=== PATIENT | female | born 1950 | race Caucasian/White ===

== ENCOUNTER 2018-05-24 10:08 | Day surgery (SDC) | payer OTHER ==
[~2018-05-24] VITALS: Ht 162.6 cm; Wt 96.3 kg
[~2018-05-24 10:08] MED LIST: ATOR10 PO; Acidophilus La100 GM PO; BUDE6HFA INH; CALCIUM PO; CHOL10002 PO; DIGESTIVE ENZYMES PO; Elmiron100 MG PO; FOLI400 PO; FOLIC ACID PO; GABA100 PO; GABA300 PO; HYDCHL12.5 PO; HYDCHL25 PO; LIDOCAINE 1%; LISI20 PO; LISINOPRIL PO; LOVENOX SQ; META800 PO; PRAV20 PO; PROBIOTICS PO; SELENIUM 200 MCG PO; TRAM50 PO; TUMERIC PO; TURMERIC500 MG PO; Vitamin D PO; WARFARIN PO; XARELTO20 MG PO; ZINC220 PO; Zestril PO; [UNRECOGNIZED DRUG - CODE] PO; [UNRECOGNIZED DRUG - OTHER] PO; [UNRECOGNIZED DRUG - OTHER] PO; [UNRECOGNIZED DRUG - OTHER] PO
== END 2018-05-24 15:02 | disposition home or self-care (01) ==
LOC: ORSCSDS 10:08
PROVIDERS: Orthopaedic Surgery
PROC: 01N50ZZ Release Median Nerve, Open Approach (ICD-10-PCS; principal; 2018-05-24 11:30)
DX: G56.01 Carpal tunnel syndrome, right upper limb (principal); I10 Essential (primary) hypertension; E66.01 Morbid (severe) obesity due to excess calories; Z68.36 Body mass index [BMI] 36.0-36.9, adult; Z79.899 Other long term (current) drug therapy
CPT/HCPCS: J0690; J2250; J3010; J7120

== ENCOUNTER → 2018-07-14 | Outpatient (CLI) | payer OTHER ==
[2018-07-16 13:07] LABS: HPV 16 Negative (Negative); HPV 18 Negative (Negative); HPV OTHER HR TYPES Negative (Negative)
== END | disposition home or self-care (01) ==
LOC: LAB SHORT 17:27 → LAB 17:27
PROVIDERS: Obstetrics & Gynecology Gynecology
DX: Z91.89 Other specified personal risk factors, not elsewhere classified (principal)
CPT/HCPCS: 87624; G0123

== ENCOUNTER → 2019-02-21 | Outpatient (CLI) | payer MEDICARE | END | disposition home or self-care (01) | LOC: LAB EV 14:20 → LAB SHORT 14:20 | DX: N30.01 Acute cystitis with hematuria (principal) | CPT/HCPCS: 87077; 87086; 87186 ==

== ENCOUNTER 2019-06-16 14:48 | Emergency (ER) | payer MEDICARE ==
[~2019-06-16] VITALS: Ht 162.6 cm; Wt 92.5 kg
[2019-06-16] MEDS ORDERED: SPIRONOLACTONE50 MG PO (15:16)
[2019-06-16] MEDS ORDERED: METOPROLOL SUCC25 MG PO (15:16)
[2019-06-16] MEDS ORDERED: AMLODIPINE BESY10 MG PO (15:16)
[2019-06-16] MEDS ORDERED: XARELTO20 M1 PO (15:17)
[2019-06-16 15:26] LABS: BASOPHILS ABSOLUTE AUTO 0.04 K/mm3 (0.00-0.23); BASOPHILS PERCENT AUTO 0 % (0-2); EOSINOPHILS ABSOLUTE AUTO 0.01 K/mm3 (0.00-0.68); EOSINOPHILS PERCENT AUTO 0 % (0-6); Hematocrit 47.4 % (33.0-51.0); Hemoglobin 15.8 g/dL (11.5-16.0); IMMATURE GRAN ABSOLUTE AUTO 0.04 K/mm3 (0.00-0.10); IMMATURE GRAN PERCENT AUTO 0 % (0-1); LYMPHOCYTES ABSOLUTE AUTO 1.24 K/mm3 (0.84-5.20); LYMPHOCYTES PERCENT AUTO 9 % (21-46); MONOCYTES ABSOLUTE AUTO 0.36 K/mm3 (0.16-1.47); MONOCYTES PERCENT AUTO 3 % (4-13); Mean Corpuscular HGB 30.6 pg (26.0-34.0); Mean Corpuscular HGB Conc 33.3 g/dL (31.5-36.5); Mean Corpuscular Volume 92 fL (80-100); Mean Platelet Volume 10.9 fL (9.1-12.4); NEUTROPHILS ABSOLUTE AUTO 12.48 K/mm3 (1.96-9.15); NEUTROPHILS PERCENT AUTO 88 % (41-73); Platelet Count 250 K/mm3 (150-400); RDW Standard Deviation 44.3 fL (35.1-46.3); Red Blood Cell Count 5.17 M/mm3 (3.80-5.20); White Blood Cell Count 14.17 K/mm3 (4.00-11.30)
[2019-06-16 15:48] LABS: Albumin, Blood 4.3 g/dL (3.4-5.0); Albumin/Globulin Ratio 1.1 (0.8-1.8); Bilirubin, Total 0.5 mg/dL (0.1-1.0); Bun/Creatinine Ratio 19.6 (12.0-20.0); Calcium, Blood 9.8 mg/dL (8.5-10.1); Creatinine, Blood 1.02 mg/dL (0.40-1.00); Globulin, Blood 3.8 g/dL (2.2-4.0); Potassium, Blood 4.2 mmol/L (3.5-5.5); Total Protein, Blood 8.1 g/dL (6.4-8.2)
[2019-06-16 16:17] LABS: Source, Urine Clean Catch
[2019-06-16 16:19] LABS: Bilirubin, Urine Neg (Neg); Blood, Urine 5+ (Neg); Glucose Qualitative, Urine Neg (Neg); Ketones, Urine 2+ (Neg); Leukocyte Esterase, Urine 1+ (Neg); Nitrite, Urine Neg (Neg); Protein, Urine 2+ (Neg); Urobilinogen, Urine NORM (Normal)
[2019-06-16 16:20] LABS: Appearance, Urine Clear (Clear); Color, Urine Yellow (P-Yellow)
[2019-06-16 16:26] LABS: Bacteria Mod /hpf; Mucus Light (0-Heavy); Squamous Epithelial Cells Few /hpf (Few)
== END 2019-06-16 18:04 | disposition home or self-care (01) ==
LOC: ER 14:48
PROVIDERS: Emergency Medicine
DX: N13.6 Pyonephrosis (principal); I10 Essential (primary) hypertension; Z85.3 Personal history of malignant neoplasm of breast; Z87.891 Personal history of nicotine dependence; Z88.8 Allergy status to other drugs, medicaments and biological substances; Z88.5 Allergy status to narcotic agent; Z79.899 Other long term (current) drug therapy; Z79.01 Long term (current) use of anticoagulants
CPT/HCPCS: 36415; 74176; 80053; 81001; 83690; 85025; 87077; 87086; 87186; 96365; 96375; 99284-25; J0696; J1885; J2405

== ENCOUNTER → 2019-07-19 | Outpatient (CLI) | payer MEDICARE ==
[~2019-07-19] MED LIST changes: +AMLO10 PO; +AMLODIPINE BESY10 MG PO; +METOPROLOL SUCC25 MG PO; +PROAIR RESPICL90 MCG; +SPIRONOLACTONE50 MG PO; +XARELTO20 M1 PO
[2019-07-21 15:06] LABS: HPV 16 Negative (Negative); HPV 18 Negative (Negative); HPV OTHER HR TYPES Negative (Negative)
== END | disposition home or self-care (01) ==
LOC: LAB SHORT 12:25 → LAB 12:25
PROVIDERS: Obstetrics & Gynecology Gynecology
DX: N89.8 Other specified noninflammatory disorders of vagina (principal); Z91.89 Other specified personal risk factors, not elsewhere classified
CPT/HCPCS: 87070; 87077; 87186; 87205; 87624; G0123

== ENCOUNTER 2019-08-15 08:57 | Day surgery (SDC) | payer MEDICARE ==
[~2019-08-15] VITALS: Ht 162.6 cm; Wt 90.4 kg
--- NOTE | 2019-08-15 10:43 | NUR ---
08/15/19 1043 Roosevelt Chinchilla RED RASH AREA IN AXILLA NOTED. MD AWARE, NO FURTHUR ORDERS RECEIVED. USED PEROXIDE AFTER ALCOHOL TO PREP, FOLLOWED BY CHLORA PREP.
--- NOTE | 2019-08-15 13:49 | NUR ---
08/15/19 1812 Christine Bradford PT IS ACCOMPANIED BY TWO FAMILY MEMBERS AT THIS TIME. VSS. PT COMPLAINS OF PAIN 01/26, RN TREATING PAIN WITH IV PAIN MEDICATIONS AND PO PAIN MEDICATION PER DR'S ORDERS. PT DENIES NAUSEA. PT TOLERATING PO FLUIDS AND CRACKERS WELL. CALL LIGHT IN REACH. WARM BLANKETS PROVIDED.
== END 2019-08-15 14:35 | disposition home or self-care (01) ==
LOC: ORSCSDS 08:57
PROVIDERS: Orthopaedic Surgery
PROC: 0LS14ZZ Reposition Right Shoulder Tendon, Percutaneous Endoscopic Approach (ICD-10-PCS; principal; 2019-08-15 10:15)
PROC: 0LQ14ZZ Repair Right Shoulder Tendon, Percutaneous Endoscopic Approach (ICD-10-PCS; principal; 2019-08-15 10:15)
PROC: 0RHJ44Z Insertion of Internal Fixation Device into Right Shoulder Joint, Percutaneous Endoscopic Approach (ICD-10-PCS; principal; 2019-08-15 10:15)
PROC: 0RNJ4ZZ Release Right Shoulder Joint, Percutaneous Endoscopic Approach (ICD-10-PCS; principal; 2019-08-15 10:15)
DX: M75.121 Complete rotator cuff tear or rupture of right shoulder, not specified as traumatic (principal); M75.41 Impingement syndrome of right shoulder; S46.101A Unspecified injury of muscle, fascia and tendon of long head of biceps, right arm, initial encounter; I10 Essential (primary) hypertension; E78.5 Hyperlipidemia, unspecified; M79.7 Fibromyalgia; Z79.899 Other long term (current) drug therapy; E66.9 Obesity, unspecified; Z68.34 Body mass index [BMI] 34.0-34.9, adult; Z86.718 Personal history of other venous thrombosis and embolism; Z79.01 Long term (current) use of anticoagulants
CPT/HCPCS: A9270-GY; C1713; J0171; J0690; J0735; J1100; J1885; J2405; J2704; J2795; J3010; J7120

== ENCOUNTER → 2020-03-12 | Outpatient (CLI) | payer MEDICARE | LOC: LAB SHORT 15:58 → LAB 15:58 | DX: R10.30 Lower abdominal pain, unspecified (principal) | CPT/HCPCS: 87077; 87086; 87186 ==

== ENCOUNTER → 2020-08-01 | Outpatient (CLI) | payer MEDICARE | LOC: LAB 15:05 → LAB SHORT 15:05 | DX: N39.0 Urinary tract infection, site not specified (principal) | CPT/HCPCS: 87077; 87086; 87186 ==

== ENCOUNTER 2020-09-04 07:48 | Day surgery (SDC) | payer MEDICARE ==
[~2020-09-04] VITALS: Ht 162.6 cm; Wt 91.1 kg
== END 2020-09-04 09:55 | disposition home or self-care (01) ==
LOC: ORSCSDS 07:48
PROVIDERS: Internal Medicine Gastroenterology
PROC: 0DBK8ZX Excision of Ascending Colon, Via Natural or Artificial Opening Endoscopic, Diagnostic (ICD-10-PCS; principal; 2020-09-04 09:00)
DX: Z12.11 Encounter for screening for malignant neoplasm of colon (principal); D12.2 Benign neoplasm of ascending colon; K57.30 Diverticulosis of large intestine without perforation or abscess without bleeding; K64.8 Other hemorrhoids; Z86.010 Personal history of colon polyps; Z83.71 Family history of colonic polyps; I10 Essential (primary) hypertension; E78.5 Hyperlipidemia, unspecified; Z86.718 Personal history of other venous thrombosis and embolism; Z87.891 Personal history of nicotine dependence; Z79.01 Long term (current) use of anticoagulants; Z79.899 Other long term (current) drug therapy
CPT/HCPCS: 88305; J2405; J2704; J7120

== ENCOUNTER → 2021-02-09 | Outpatient (CLI) | payer MEDICARE ==
[2021-02-09 10:52] LABS: Source, Urine Clean Catch
[2021-02-09 10:55] LABS: BASOPHILS ABSOLUTE AUTO 0.02 K/mm3 (0.00-0.23); BASOPHILS PERCENT AUTO 0 % (0-2); EOSINOPHILS ABSOLUTE AUTO 0.05 K/mm3 (0.00-0.68); EOSINOPHILS PERCENT AUTO 0 % (0-6); Hematocrit 45.8 % (33.0-51.0); Hemoglobin 15.4 g/dL (11.5-16.0); IMMATURE GRAN ABSOLUTE AUTO 0.09 K/mm3 (0.00-0.10); IMMATURE GRAN PERCENT AUTO 1 % (0-1); LYMPHOCYTES ABSOLUTE AUTO 2.17 K/mm3 (0.84-5.20); LYMPHOCYTES PERCENT AUTO 17 % (21-46); MONOCYTES ABSOLUTE AUTO 0.82 K/mm3 (0.16-1.47); MONOCYTES PERCENT AUTO 7 % (4-13); Mean Corpuscular HGB 30.1 pg (26.0-34.0); Mean Corpuscular HGB Conc 33.6 g/dL (31.5-36.5); Mean Corpuscular Volume 90 fL (80-100); Mean Platelet Volume 10.7 fL (9.1-12.4); NEUTROPHILS ABSOLUTE AUTO 9.45 K/mm3 (1.96-9.15); NEUTROPHILS PERCENT AUTO 75 % (41-73); Platelet Count 250 K/mm3 (150-400); RDW Coefficient Variation 13.5 % (11.7-14.2); Red Blood Cell Count 5.12 M/mm3 (3.80-5.20)
[2021-02-09 11:05] LABS: Albumin, Blood 4.1 g/dL (3.4-5.0); Albumin/Globulin Ratio 1.2 (0.8-1.8); Bilirubin, Total 0.8 mg/dL (0.1-1.0); Bun/Creatinine Ratio 27.9 (12.0-20.0); Calcium, Blood 8.8 mg/dL (8.5-10.1); Creatinine, Blood 1.11 mg/dL (0.40-1.00); Globulin, Blood 3.5 g/dL (2.2-4.0); Potassium, Blood 4.1 mmol/L (3.5-5.5); Total Protein, Blood 7.6 g/dL (6.4-8.2)
[2021-02-09 11:21] LABS: Bacteria Mod /hpf; Granular Casts Rare /lpf (0); Mucus Light (0-Heavy); Red Blood Cells, Urine TNTC /hpf (0-2); Squamous Epithelial Cells Mod /hpf (Few); Transitional Epithelial Cells Rare /hpf (0-Rare)
== END | disposition home or self-care (01) ==
LOC: LAB SHORT 10:47
PROVIDERS: General Practice
DX: R10.9 Unspecified abdominal pain (principal); R82.90 Unspecified abnormal findings in urine
CPT/HCPCS: 80053; 81015; 85025; 87086

== ENCOUNTER → 2021-02-10 | Outpatient (CLI) | payer MEDICARE ==
[2021-02-10 10:31] LABS: BASOPHILS ABSOLUTE AUTO 0.02 K/mm3 (0.00-0.23); BASOPHILS PERCENT AUTO 0 % (0-2); EOSINOPHILS ABSOLUTE AUTO 0.09 K/mm3 (0.00-0.68); EOSINOPHILS PERCENT AUTO 1 % (0-6); Hematocrit 44.5 % (33.0-51.0); Hemoglobin 14.9 g/dL (11.5-16.0); IMMATURE GRAN ABSOLUTE AUTO 0.08 K/mm3 (0.00-0.10); IMMATURE GRAN PERCENT AUTO 1 % (0-1); LYMPHOCYTES ABSOLUTE AUTO 1.98 K/mm3 (0.84-5.20); LYMPHOCYTES PERCENT AUTO 16 % (21-46); MONOCYTES ABSOLUTE AUTO 0.98 K/mm3 (0.16-1.47); MONOCYTES PERCENT AUTO 8 % (4-13); Mean Corpuscular HGB 30.3 pg (26.0-34.0); Mean Corpuscular HGB Conc 33.5 g/dL (31.5-36.5); Mean Corpuscular Volume 91 fL (80-100); NEUTROPHILS ABSOLUTE AUTO 9.66 K/mm3 (1.96-9.15); NEUTROPHILS PERCENT AUTO 75 % (41-73); Platelet Count 247 K/mm3 (150-400); RDW Coefficient Variation 13.7 % (11.7-14.2); RDW Standard Deviation 45.2 fL (35.1-46.3); Red Blood Cell Count 4.91 M/mm3 (3.80-5.20); White Blood Cell Count 12.81 K/mm3 (4.00-11.30)
== END | disposition home or self-care (01) ==
LOC: LAB SHORT 10:20
PROVIDERS: General Practice
DX: N39.0 Urinary tract infection, site not specified (principal)
CPT/HCPCS: 85025

== ENCOUNTER → 2021-05-15 | Outpatient (CLI) | payer MEDICARE | LOC: LAB SHORT 13:21 | DX: N39.0 Urinary tract infection, site not specified (principal); Z88.5 Allergy status to narcotic agent; Z88.6 Allergy status to analgesic agent; Z91.048 Other nonmedicinal substance allergy status | CPT/HCPCS: 87086 ==

== ENCOUNTER → 2021-09-30 | Outpatient (CLI) | payer OTHER ==
[~2021-09-30] MED LIST changes: +CEPH250A PO
[2021-09-30 11:48] LABS: Source, Urine Clean Catch
[2021-09-30 12:02] LABS: Bilirubin, Urine Neg (Neg); Blood, Urine 3+ (Neg); Glucose Qualitative, Urine Neg (Neg); Ketones, Urine Neg (Neg); Leukocyte Esterase, Urine 2+ (Neg); Nitrite, Urine Neg (Neg); Protein, Urine Neg (Neg); Urobilinogen, Urine NORM (Normal)
[2021-09-30 12:11] LABS: Appearance, Urine Hazy (Clear); Color, Urine Pale Yellow (P-Yellow)
[2021-09-30 12:13] LABS: Bacteria Few /hpf; Renal Epithelial Rare /hpf (0-Rare); Squamous Epithelial Cells Rare /hpf (Few); Yeast/Fungi Urine Rare /hpf
== END | disposition home or self-care (01) ==
LOC: LAB 10:55
PROVIDERS: Physician Assistant Medical
DX: R30.9 Painful micturition, unspecified (principal)
CPT/HCPCS: 81001; 87077; 87086; 87186

== ENCOUNTER → 2021-11-01 | Outpatient (CLI) | payer OTHER | END | disposition home or self-care (01) | LOC: LAB SHORT 12:18 | DX: R31.9 Hematuria, unspecified (principal) | CPT/HCPCS: 87086 ==

== ENCOUNTER → 2022-03-19 | Outpatient (CLI) | payer OTHER | END | disposition home or self-care (01) | LOC: LAB 12:15 → LAB SHORT 12:15 | DX: R30.0 Dysuria (principal) | CPT/HCPCS: 87077; 87086; 87186 ==

== ENCOUNTER → 2022-05-20 | Outpatient (CLI) | payer OTHER | LOC: LAB SHORT 08:40 → LAB 08:40 | DX: N30.90 Cystitis, unspecified without hematuria (principal) | CPT/HCPCS: 87077; 87086; 87186 ==

== ENCOUNTER → 2022-06-17 | Outpatient (CLI) | payer OTHER | END | disposition home or self-care (01) | LOC: LAB SHORT 15:03 | DX: N39.0 Urinary tract infection, site not specified (principal) | CPT/HCPCS: 87086 ==

== ENCOUNTER → 2022-10-17 | Outpatient (CLI) | payer OTHER | END | disposition home or self-care (01) | LOC: LAB 08:27 → LAB SHORT 08:27 | DX: R32 Unspecified urinary incontinence (principal); R39.82 Chronic bladder pain | CPT/HCPCS: 87086 ==

== ENCOUNTER → 2023-06-22 | Outpatient (CLI) | payer OTHER | END | disposition home or self-care (01) | LOC: LAB 09:25 → LAB SHORT 09:25 | DX: R30.0 Dysuria (principal) | CPT/HCPCS: 87086 ==

== ENCOUNTER → 2024-01-31 | Outpatient (CLI) | payer OTHER ==
[2024-01-31 10:53] LABS: BASOPHILS ABSOLUTE AUTO 0.03 K/mm3 (0.00-0.23); BASOPHILS PERCENT AUTO 0 % (0-2); EOSINOPHILS ABSOLUTE AUTO 0.08 K/mm3 (0.00-0.68); EOSINOPHILS PERCENT AUTO 1 % (0-6); Hematocrit 41.6 % (33.0-51.0); Hemoglobin 14.2 g/dL (11.5-16.0); IMMATURE GRAN ABSOLUTE AUTO 0.03 K/mm3 (0.00-0.10); IMMATURE GRAN PERCENT AUTO 0 % (0-1); LYMPHOCYTES ABSOLUTE AUTO 1.36 K/mm3 (0.84-5.20); LYMPHOCYTES PERCENT AUTO 18 % (21-46); MONOCYTES ABSOLUTE AUTO 0.45 K/mm3 (0.16-1.47); MONOCYTES PERCENT AUTO 6 % (4-13); Mean Corpuscular HGB 31.5 pg (26.0-34.0); Mean Corpuscular HGB Conc 34.1 g/dL (31.5-36.5); Mean Corpuscular Volume 92 fL (80-100); Mean Platelet Volume 10.6 fL (9.1-12.4); NEUTROPHILS ABSOLUTE AUTO 5.65 K/mm3 (1.96-9.15); NEUTROPHILS PERCENT AUTO 74 % (41-73); Platelet Count 215 K/mm3 (150-400); RDW Coefficient Variation 13.5 % (11.7-14.2); Red Blood Cell Count 4.51 M/mm3 (3.80-5.20)
[2024-01-31 11:08] LABS: Albumin, Blood 3.3 g/dL (3.4-5.0); Albumin/Globulin Ratio 0.8 (0.8-1.8); Bilirubin, Total 0.5 mg/dL (0.1-1.0); Bun/Creatinine Ratio 27.8 (12.0-20.0); Calcium, Blood 9.6 mg/dL (8.5-10.1); Creatinine, Blood 0.9 mg/dL (0.40-1.00); Globulin, Blood 3.9 g/dL (2.2-4.0); Potassium, Blood 4.7 mmol/L (3.5-5.5); Total Protein, Blood 7.2 g/dL (6.4-8.2)
== END | disposition home or self-care (01) ==
LOC: LAB 10:48 → LAB SHORT 10:48
PROVIDERS: Emergency Medicine
DX: Z09 Encounter for follow-up examination after completed treatment for conditions other than malignant neoplasm (principal); Z86.718 Personal history of other venous thrombosis and embolism
CPT/HCPCS: 80053; 85025

== ENCOUNTER 2024-09-06 10:03 | Day surgery (SDC) | payer OTHER ==
[2024-09-06] VITALS (13 sets, daily range): BP systolic 112–159; BP diastolic 68–93
[~2024-09-06] VITALS: Ht 162.6 cm; Wt 74.3 kg
[~2024-09-06 10:03] MED LIST changes: +Betamethasone D60 ML TOP; +ESTRADIOL VAG; +NORT10 PO
[2024-09-06] MEDS ORDERED: Acetaminophen 500 MG Tab PO SCH ×2 (10:20→16:00)
[2024-09-06] MEDS ORDERED: Tranexamic Acid 100 ML IV SCH (10:20)
[2024-09-06] MEDS ORDERED: Ropivacaine 0.5% HCl/Pf 123.125 MG,EPINEPHrine HCL 0.25 MG,Ketorolac Tromethamine 15 MG... INFIL SCH (10:20)
[2024-09-06] MEDS ORDERED: Lactated Ringer's 1,000 ML IV SCH ×3 (10:20→12:15)
[2024-09-06] MEDS ORDERED: Chlorhexidine Mouth Care 15 ML UDC MT SCH (10:20)
[2024-09-06] MEDS ORDERED: CeFAZolin Sodium 2,000 MG in NS 100 ML IV SCH ×2 (10:20→21:00)
[2024-09-06] MEDS ORDERED: Estradiol Vag Cream 0.1 MG/G 42.5 GM Tube VAG ONE (10:30)
[2024-09-06] MEDS ORDERED: DiphenhydrAMINE HCL 25 MG Cap PO PRN (10:35)
[2024-09-06] MEDS ORDERED: FLU VACC TS2024-25(6MOS UP)/PF 45 MCG/0.5 ML SYRINGE IM SCH (10:35)
[2024-09-06] MEDS ORDERED: Bisacodyl 10 MG Supp PR PRN (10:35)
[2024-09-06] MEDS ORDERED: HYDROcodone 5-APAP 325 TAB PO PRN (10:35)
[2024-09-06] MEDS ORDERED: Ondansetron HCl 2 MG / ML 2ML Vial IV PRN (10:40)
[2024-09-06] MEDS ORDERED: Magnesium Hydroxide Conc 10 ML UDC PO PRN (10:40)
[2024-09-06] MEDS ORDERED: Promethazine HCl 25 MG Tab PO PRN (10:40)
[2024-09-06] MEDS ORDERED: Metoclopramide HCl 5MG / ML 2ML Vial IV PRN (10:40)
[2024-09-06] MEDS ORDERED: HYDROmorphone HCl/Pf 1MG SYR IV PRN (10:45)
[2024-09-06] MEDS ORDERED: THYROID PO (10:46)
[2024-09-06] MEDS ORDERED: CeFAZolin Sodium 2,000 MG VIAL ONE (11:00)
--- NOTE | 2024-09-06 11:18 | NUR ---
Ambulatory in Day SurgeryPre-Op teaching done. Pt verbalizes understanding. History, Chart, Medications and Allergies reviewed before start of procedure.Patient confirms NPO status and agrees with scheduled surgery. Patient reports completing Chlorhexadine shower X2 prior to admission to hospital.History, Chart, Medications and Allergies reviewed before start of procedure. PT IS +MSSA, DID NOT GET PRESCIRBED SHOWER/OINTMENT
[2024-09-06] MEDS ORDERED: Vancomycin HCL 1,000 MG in NS 250 ML IV SCH (11:45)
[2024-09-06] MEDS ORDERED: propofoL 20 ML IV ONE ×5 (12:32→14:05)
[2024-09-06] MEDS ORDERED: Midazolam HCl 1MG / ML 2ML Vial ONE (12:32)
[2024-09-06] MEDS ORDERED: Dexamethasone Sod Phos 10 MG/ML 1ML VIAL ONE (12:59)
--- NOTE | 2024-09-06 13:20 | NUR ---
09/06/24 1320 Jose,Tosha SPINAL BLOCK COMPLETED BY DR. HYLTON UPON ENTRY TO OR. BRUISING NOTED ON PATIENTS INNER LEFT KNEE, AND UPPER LEFT THIGH PRIOR TO ENTRY INTO THE OR.
[2024-09-06] MEDS ORDERED: FentaNYL Citrate 50 MCG/ML 2 ML Injection ONE ×2 (13:21→15:05)
[2024-09-06] MEDS ORDERED: Ondansetron HCl 2 MG / ML 2ML Vial ONE (14:10)
[2024-09-06] MEDS ORDERED: HYDROmorphone HCl/Pf 1MG SYR ONE (14:27)
[2024-09-06] MEDS ORDERED: Ketorolac Tromethamine 30mg Vial ONE (15:22)
--- NOTE | 2024-09-06 15:57 | NUR ---
TRANSFER TO UNIT AFTER RECEIVING REPORT FROM LOCAL DRIVER, PATIENT TRANSFERRED TO UNIT VIA BED AT APPROX 1520. PATIENT ALERT AND ORIENTED X4. COMMUNICATES NEEDS EFFECTIVELY. S/P L TKA WITH SPINAL - FULL SENSATION. REPORTS 3/10 PAIN TOLERABLE. AQUACEL AND SYBIL WRAP DRESSING C/D/I - NO SHADOWING NOTED. POLAR PACK IN PLACE. DENIES N/V - WATER AND SNACKS WITHIN REACH. IVF INFUSING PER EMAR. VSS. TOLERATING ROOM AIR, SATs >90%. CALL LIGHT IN REACH. FAMILY AT BEDSIDE.
--- NOTE | 2024-09-06 17:38 | NUR ---
SHIFT SUMMARY NO ACUTE CHANGES SINCE ARRIVAL TO UNIT. POD 0 L TKA. VSS. SBP 110s-150s. DENIES CHEST PAIN, PRESSURE. ON ROOM AIR, SATs >90%. RR EVEN, UNLABORED. UP WITH PHYSICAL THERAPY THIS EVENING - IS GOING TO STAY OVERNIGHT FOR ONE MORE THERAPY SESSION IN THE MORNING. AMBULATING WITH 1P ASSIST FWW GB. PAIN TOLERABLE AT THIS TIME. COOLING DEVICE IN PLACE. TOLERATING PO INTAKE - DENIES N/V. VOIDING. AQUACEL AND ACEWRAP DRESSING C/D/I - NO SHADOWING NOTED. UP TO CHAIR AND BSC. CALL LIGHT IN REACH. FAMILY AT BEDSIDE THROUGHOUT AFTERNOON.
[2024-09-06] MEDS ORDERED: Ketorolac Tromethamine 15mg Vial IV SCH (18:00)
[2024-09-06] MEDS ORDERED: Docusate Sodium 100 MG Cap PO SCH (21:00)
[2024-09-06] MEDS ORDERED: Nortriptyline HCl 10 MG Cap PO SCH (21:00)
[2024-09-07 00:02] VITALS: BP 161/73
[2024-09-07 03:25] VITALS: BP 155/71
--- NOTE | 2024-09-07 05:44 | NUR ---
SHIFT SUMMARY PT POD 0 LEFT TOTAL KNEE. PT HAS BEEN UP AND AMBULATING AND IS VOIDING. TOLERATING PO INTAKE. SURGICAL SITE WNL. DRESSING C/D/I. PAIN MANANGED WITH MEDS PER EMAR. PLAN OF CARE REMAINS UNCHANGED. PLAN IS FOR DISCHARGE TODAY. BED IN LOWEST POSITION, CALL LIGHT WITHIN REACH.
[2024-09-07 05:59] LABS: BASOPHILS ABSOLUTE AUTO 0.01 K/mm3 (0.00-0.23); BASOPHILS PERCENT AUTO 0 % (0-2); EOSINOPHILS ABSOLUTE AUTO 0.01 K/mm3 (0.00-0.68); EOSINOPHILS PERCENT AUTO 0 % (0-6); Hematocrit 34.6 % (33.0-51.0); Hemoglobin 11.5 g/dL (11.5-16.0); IMMATURE GRAN ABSOLUTE AUTO 0.04 K/mm3 (0.00-0.10); IMMATURE GRAN PERCENT AUTO 0 % (0-1); LYMPHOCYTES PERCENT AUTO 8 % (21-46); MONOCYTES ABSOLUTE AUTO 0.48 K/mm3 (0.16-1.47); MONOCYTES PERCENT AUTO 4 % (4-13); Mean Corpuscular HGB 29.9 pg (26.0-34.0); Mean Corpuscular HGB Conc 33.2 g/dL (31.5-36.5); Mean Corpuscular Volume 90 fL (80-100); NEUTROPHILS ABSOLUTE AUTO 9.85 K/mm3 (1.96-9.15); NEUTROPHILS PERCENT AUTO 87 % (41-73); Platelet Count 216 K/mm3 (150-400); RDW Coefficient Variation 13.7 % (11.7-14.2); RDW Standard Deviation 44.7 fL (35.1-46.3); Red Blood Cell Count 3.84 M/mm3 (3.80-5.20); White Blood Cell Count 11.29 K/mm3 (4.00-11.30)
[2024-09-07 06:18] LABS: Bun/Creatinine Ratio 28.8 (12.0-20.0); Calcium, Blood 9.2 mg/dL (8.5-10.1); Creatinine, Blood 0.76 mg/dL (0.40-1.00); Potassium, Blood 4.5 mmol/L (3.5-5.5)
[2024-09-07 07:06] VITALS: BP 146/71
--- NOTE | 2024-09-07 07:12 | NUR ---
SHIFT SUMMARY PT POD 0 RIGHT TOTAL HIP. PT HAS BEEN PAINFUL POST OP. PT HAD SOME PAIN AT SHIFT CHANGE, BUT IT WAS MINIMAL. PT REPORTED IT AT 4/10. PT WAS ABLE TO AMBULATE IN THE HALLWAY WITH THE LITHOGRAPHIC PHOTOGRAPHER AND REPORTED THAT SHE FELT GOOD. PT WAS ALSO TO AMBULATE FROM THE BSC BACK TO BED. CLOSER TO MIDNIGHT PT GOT UP WITH LITHOGRAPHIC PHOTOGRAPHER TO USE THE BATHROOM AND PT REPORTS THAT SHE HEARD HER KNEE "POP". SHE SAID THAT HER KNEE POPPED TWICE. SINCE THAT TIME PT HAS SUFFERED INTERMITTENT PAIN IN HER RIGHT KNEE AND INSIDE OF HER THIGH. PAIN ASSESSED FREQUENTLY AND MANAGE PER EMAR TO HELP ENSURE ADEQUATE PAIN RELIEF. PT REPORTS THAT PAIN MEDICATION EFFECTIVE FOR PAIN, HOWEVER PT REPORTS THAT THE PAIN KEEPS COMING BACK. PT ALSO REPORTS MUSCLE SPASMS IN HER LOWER EXT. PT REPORTS HISTORY OF ARTHRITIS IN HER RIGHT KNEE WELL MUSCLES SPASMS. SURGICAL SITE WNL, AREA IS SOFT. CIRCULATION WNL. PULSES ARE PRESENT. PT ABLE TO WIGGLE TOES. STAVE MILL HAND DARSHAN HAYS ALSO ASSESSED SURGICAL SITE WITH THIS RN AND NOTED SAME FINDINGS. PT HAS ANXIOUS MOST OF THE NIGHT. REPORTING THAT THE PAIN WAKES HER FROM SLEEPING. PT NOW ONLY ABLE TO WALK SHORT DISTANCES FROM THE BED TO THE BSC, TOO MUCH MOVEMENT CAUSES SHARP PAINS IN HER RIGHT KNEE AND INNER THIGH. PT IS VOIDING, TOLERATING PO INTAKE. VITALS STABLE AND POST OP ANTIBIOTICS INFUSED. DAYSHIFT PATRICK ALEMAN MADE AWARE OF PT REPORTED PAIN OVERNIGHT. DISCUSSED WITH PT DURING BEDSIDE REPORT THAT DAY RN WILL FOLLOW UP WITH PROVIDER. VITALS STABLE. BED IN LOWEST POISITON, CALL LIGHT WITHIN REACH.
[2024-09-07] MEDS ORDERED: ELIQUIS2.5 MG PO (07:48)
[2024-09-07] MEDS ORDERED: AmLODIPine Besylate 5 MG Tab PO SCH (09:00)
[2024-09-07] MEDS ORDERED: Metoprolol Succinate 25 MG TABCR PO SCH (09:00)
[2024-09-07] MEDS ORDERED: Spironolactone 50 MG Tab PO SCH (09:00)
[2024-09-07] MEDS ORDERED: Apixaban 5 MG Tab PO SCH (09:00)
--- NOTE | 2024-09-07 09:52 | NUR ---
DISCHARGE PT PROVIDED WITH WRITTEN AND VERBAL DISCHARGE INSTRUCTIONS; SHE REPORTED UNDERSTANDING. CLEAN DRESSINGS PROVIDED FOR HOME USE. PT ASSISTED OUT AT APPROXIMATELY 0940. PT CLEARED THERAPY AND WAS ABLE TO TOLERATE PO. PT HAD SOME NAUSEA AND WAS GIVEN ZOFRAN, SHE STATES SHE WILL NOTIFY DR. GOMEZ OFFICE IF IT CONTINUES. PT ASSISTED OUT IN W/C.
[2024-09-08] MEDS ORDERED: Betamethasone Dip 0.05% Cream 15 gm TOP SCH (21:00)
== END 2024-09-07 09:31 | disposition home or self-care (01) ==
LOC: ORSCMMR 10:03 → SURS 15:26 → ORSCMMR 09-07 09:31
PROVIDERS: Orthopaedic Surgery
PROC: 0SRD0J9 Replacement of Left Knee Joint with Synthetic Substitute, Cemented, Open Approach (ICD-10-PCS; principal; 2024-09-06 11:00)
DX: M17.12 Unilateral primary osteoarthritis, left knee (principal); J45.909 Unspecified asthma, uncomplicated; E03.9 Hypothyroidism, unspecified; Z79.899 Other long term (current) drug therapy; Z79.01 Long term (current) use of anticoagulants
CPT/HCPCS: 36415; 73560-LT; 80048; 85025; 97116; 97161; 97530; A9270; C1713; C1776; J0171; J0690; J0735; J1100; J1171; J1885; J2250; J2405; J2704; J2795; J3010; J3370; J7050; J7120

== ENCOUNTER → 2025-02-23 | Outpatient (CLI) | payer OTHER ==
[~2025-02-23] MED LIST changes: +ELIQUIS2.5 MG PO; +THYROID PO
[2025-02-23 15:07] LABS: BASOPHILS ABSOLUTE AUTO 0.03 K/mm3 (0.00-0.23); BASOPHILS PERCENT AUTO 0 % (0-2); EOSINOPHILS ABSOLUTE AUTO 0.09 K/mm3 (0.00-0.68); EOSINOPHILS PERCENT AUTO 1 % (0-6); Hematocrit 40.9 % (33.0-51.0); Hemoglobin 13.6 g/dL (11.5-16.0); IMMATURE GRAN ABSOLUTE AUTO 0.01 K/mm3 (0.00-0.10); IMMATURE GRAN PERCENT AUTO 0 % (0-1); LYMPHOCYTES ABSOLUTE AUTO 1.69 K/mm3 (0.84-5.20); LYMPHOCYTES PERCENT AUTO 22 % (21-46); MONOCYTES ABSOLUTE AUTO 0.45 K/mm3 (0.16-1.47); MONOCYTES PERCENT AUTO 6 % (4-13); Mean Corpuscular HGB Conc 33.3 g/dL (31.5-36.5); Mean Corpuscular Volume 90 fL (80-100); NEUTROPHILS ABSOLUTE AUTO 5.42 K/mm3 (1.96-9.15); NEUTROPHILS PERCENT AUTO 70 % (41-73); NRBC ABSOLUTE 0.00 K/mm3 (0.00-0.02); NRBC Auto 0.0 /100 WBC (0.0-0.2); Platelet Count 263 K/mm3 (150-400); RDW Coefficient Variation 13.6 % (11.7-14.2); RDW Standard Deviation 44.2 fL (35.1-46.3)
== END ==
LOC: LAB 15:03 → LAB SHORT 15:03
PROVIDERS: Family Medicine
DX: M25.562 Pain in left knee (principal)
CPT/HCPCS: 85025